=== PATIENT | male | born 1985 | race Two or more races ===

== ENCOUNTER 2017-09-25 21:05 | Emergency (ER) | payer BC ==
[~2017-09-25] VITALS: Ht 172.7 cm; Wt 72.6 kg
--- NOTE | 2017-09-25 21:24 | NUR ---
PT BIB FRIEND FROM HOME, PT C/O ALLERGIC REACTION X 2.5 HOURS S/P EATING CRAB, PT STATES HE TOOK 50MG OF BENADRYL 30MINUTES TIGHT COOPER. PT AOX3 RR EVEN AND UNLABORED. NO SOB NOTED NO NVD AT THIS TIME. PT GOWNED AND PLACED ON MONITOR WAITING FOR MD POLANCO.
--- NOTE | 2017-09-25 21:25 | NUR ---
REDNESS NOTED THROUGHOUT NECK, CHEST AND BUE.
[2017-09-25 21:56] VITALS: BP 128/76
[2017-09-25] MEDS: DEXAMETHASONE SOD PHOSPHATE 4 MG/ML VIAL IM ONE (22:30)
[2017-09-25] MEDS ORDERED: DEXAMETHASONE SOD PHOSPHATE 10 MG/ML VIAL ONE (22:30)
[2017-09-25] MEDS ORDERED: FAMOTIDINE (20 MG) 20 MG TABLET ONE (22:31)
[2017-09-25] MEDS: FAMOTIDINE (20 MG) 20 MG TABLET PO ONE (22:37)
== END 2017-09-25 23:12 | disposition home or self-care (01) ==
LOC: ER 21:09
DX: L50.0 Allergic urticaria (principal)
CPT/HCPCS: A4606; J1100; Z7610

== ENCOUNTER 2017-09-27 01:54 | Emergency (ER) | payer BC ==
[~2017-09-27] VITALS: Ht 170.2 cm; Wt 85.7 kg
[2017-09-27 02:05] VITALS: BP 142/78
--- NOTE | 2017-09-27 02:44 | NUR ---
INFORMED BY ADMITTING "PT STATES THE BENADRYL I TOOK HELPED AND AM LEAVING"
== END 2017-09-27 02:45 | disposition left against medical advice (07) ==
LOC: ER 01:57
DX: Z53.21 Procedure and treatment not carried out due to patient leaving prior to being seen by health care provider (principal)
CPT/HCPCS: A4606; Z7610